=== PATIENT | female | born 1960 ===

== ENCOUNTER 2017-03-16 16:41 | Emergency (ER) | payer OTHER ==
[2017-03-16] MEDS ORDERED: Sodium Chloride 0.9% 1,000 ML IV ONE (17:06)
[2017-03-16 17:43] LABS: BASO % 0.4 % (0.0-2.0); EOS # 0.2 K/uL (0.0-0.7); EOS % 2.7 % (0.0-4.0); HEMATOCRIT 33.4 % (34.0-47.0); LYMPH # 2.1 K/uL (1.0-4.3); LYMPH % 35.1 % (20.0-40.0); MEAN CORPUSCULAR HEMOGLOBIN 26.7 pg (27.0-31.0); MEAN CORPUSCULAR HGB CONC 32.9 g/dL (33.0-37.0); MEAN PLATELET VOLUME 8.6 fL (7.2-11.7); MONO # 0.4 K/uL (0.0-0.8); MONO % 6.2 % (0.0-10.0); NRBC % 0.1 % (0.0-2.0); RED CELL DISTRIBUTION WIDTH 14.2 % (11.5-14.5); WHITE BLOOD COUNT 5.9 K/uL (4.8-10.8)
--- NOTE | 2017-03-16 17:45 | RAD ---
HISTORY: kub for stent eval (urology) COMPARISON: No prior. FINDINGS: BOWEL: Moderate amount of stool seen throughout the colon consistent with fecal retention/ constipation. No evidence of acute mechanical bowel obstruction BONES: No acute fractures. OTHER FINDINGS: In situ right-sided ureteral stent. Metallic clips right upper quadrant of the abdomen consistent with prior cholecystectomy. IMPRESSION: In situ right ureteral stent. Post cholecystectomy changes. Findings consistent with constipation.
[2017-03-16 18:10] LABS: CHLORIDE 105 mmol/L (98-107); POTASSIUM 3.8 mmol/L (3.6-5.2); SODIUM 141 mmol/L (132-148)
[2017-03-16] MEDS ORDERED: Sodium Chloride 0.9% 1,000 ML ONE (18:10)
[2017-03-16 18:12] LABS: BILIRUBIN,TOTAL 0.3 mg/dL (0.2-1.3); GFR AFRICAN-AMERICAN > 60
[2017-03-16 18:13] LABS: ALB/GLOB RATIO 1.3 (1.0-2.1); ALKALINE PHOSPHATASE 61 U/L (38-126); ALT/SGPT 29 U/L (9-52); AST/SGOT 22 U/L (14-36); BLOOD UREA NITROGEN 12 mg/dL (7-17); CALCIUM 8.9 mg/dl (8.6-10.4); CARBON DIOXIDE 21 mmol/L (22-30); GLUCOSE,RANDOM 122 mg/dL (65-105); TOTAL PROTEIN 6.8 g/dL (6.3-8.3)
--- NOTE | 2017-03-16 18:34 | C.PDOC ---
History Of Present Illness 57 yr old female referred to ER by Dr. Butler for evaluation of abdominal pain, right flank pain, hematuria and fever. Patient reports teperture of 101 at home. Patient is s/p stent placement 03/12/17 and lithotripsy on 03/13/17. States the symptoms worsened yesterday. Patient denies chest pain, SOB, nausea, vomiting, dysuria, weakness or numbness. Time Seen by Provider: 03/16/17 17:06 Chief Complaint (Nursing): Female Genitourinary History Per: Patient History/Exam Limitations: no limitations Onset/Duration Of Symptoms: Days Current Symptoms Are (Timing): Still Present Past Medical History Reviewed: Historical Data, Nursing Documentation, Vital Signs Vital Signs: Last Vital Signs Temp 97.6 F 03/16/17 19:42 Pulse 67 03/16/17 19:42 Resp 18 03/16/17 19:42 BP 146/88 03/16/17 19:42 Pulse Ox 99 03/16/17 19:54 - Medical History PMH: Anemia, Kidney Stones, Chronic Kidney Disease Surgical History: Appendectomy, Cholecystectomy Family History: States: No Known Family Hx - Social History Hx Alcohol Use: No Hx Substance Use: No Review Of Systems Except As Marked, All Systems Reviewed And Found Negative. Constitutional: Positive for: Fever (101 at home) Cardiovascular: Negative for: Chest Pain Respiratory: Negative for: Shortness of Breath Gastrointestinal: Positive for: Abdominal Pain. Negative for: Nausea, Vomiting Genitourinary: Positive for: Hematuria. Negative for: Dysuria Musculoskeletal: Positive for: Back Pain (Right flank pain) Neurological: Negative for: Weakness, Numbness Physical Exam - Physical Exam Appears: Non-toxic, In Acute Distress (Mild pain) Skin: Warm, Dry, No Rash Head: Atraumatic, Normacephalic Oral Mucosa: Moist Chest: Symmetrical, No Tenderness Cardiovascular: Rhythm Regular, No Murmur Respiratory: Normal Breath Sounds, No Rales, No Rhonchi, No Wheezing Gastrointestinal/Abdominal: Soft, Tenderness (Right periumbilical tenderness), No Guarding, No Rebound Back: CVA Tenderness (Right ) Extremity: Normal ROM, No Swelling Neurological/Psych: Oriented x3, Normal Speech ED Course And Treatment - Laboratory Results Result Diagrams: 03/16/17 17:37 03/16/17 17:37 O2 Sat by Pulse Oximetry: 99 (RA) Pulse Ox Interpretation: Normal - Other Rad X-Ray - Abdomen X-Ray: Viewed By Me, Read By Radiologist Interpretation: HISTORY: kub for stent eval (urology). COMPARISON: No prior. FINDINGS: BOWEL: Moderate amount of stool seen throughout the colon consistent with fecal retention/ constipation. No evidence of acute mechanical bowel obstruction. BONES: No acute fractures. OTHER FINDINGS: In situ right- sided ureteral stent. Metallic clips right upper quadrant of the abdomen consistent with prior cholecystectomy. IMPRESSION: In situ right ureteral stent. Post cholecystectomy changes. Findings consistent with constipation. Progress Note: PLAN: X-Ray - Abdomen, CBC, CMP, Urinalysis, Toradol IVP & Sodium Chloride IV. Disposition Counseled Patient/Family Regarding: Studies Performed, Diagnosis, Need For Followup, Rx Given - Disposition Referrals: Raul Nur MD [Staff Provider] - Disposition: HOME/ ROUTINE Disposition Time: 19:50 Condition: STABLE Additional Instructions: SEGUIMIENTO CON UROLOGA DENTRO DE 1 SEMANA USE MEDICAMENTOS SEGN LO DIRIGIDO BEBER ABUNDANTE AGUA DEVUELVA A LA DEBRA DE EMERGENCIA SI LOS SNTOMAS EMPEORARAN Prescriptions: Ciprofloxacin [Cipro] 1 tab PO BID #6 tab Hydrocodone/Acetaminophen [Hydrocodon-Acetaminophen 5-325] 1 each PO Q6 PRN #15 tablet PRN Reason: Pain, Moderate (4-7) Instructions: Urinary Tract Infection in Women (ED), Renal Colic (ED) Forms: [facility] (Chinese), Work Excuse Print Language: ENGLISH - POA Present On Arrival: None - Clinical Impression Clinical Impression: Pain due to ureteral stent, UTI (urinary tract infection) - Scribe Statement The provider has reviewed the documentation as recorded by the Sophie Ochoa Provider Attestation: All medical record entries made by the Scribe were at my direction and personally dictated by me. I have reviewed the chart and agree that the record accurately reflects my personal performance of the history, physical exam, medical decision making, and the department course for this patient. I have also personally directed, reviewed, and agree with the discharge instructions and disposition.
[2017-03-16 18:48] LABS: RBC URINE 3187 /hpf (0-3); URINE BACTERIA MOD (<OCC); URINE BILIRUBIN NEGATIVE (NEGATIVE); URINE BLOOD 3+ (NEGATIVE); URINE CALCIUM OXALATE CRYSTALS MOD /hpf (<OCC); URINE COLOR Yellow (YELLOW); URINE GLUCOSE (UA) NORMAL (Normal); URINE KETONE NEGATIVE (NEGATIVE); URINE LEUKOCYTE ESTERASE 3+ Leu/uL (Negative); URINE PROTEIN 2+ mg/dL (NEGATIVE); URINE UROBILINOGEN NORMAL mg/dL (0.2-1.0); WBC URINE 109 /hpf (0-5)
[2017-03-16] MEDS ORDERED: Hydrocodone/Acetaminophen 5 mg /300 mg Tab PO STA (19:34)
[2017-03-16] MEDS ORDERED: Hydrocodone/Acetaminophen 5 mg /300 mg Tab PO ONE (19:40)
[2017-03-16 20:16] VITALS: BP 144/81; PULSE 72; RESP 17; TEMP 97.8; O2SAT 96
== END 2017-03-16 20:14 | disposition home or self-care (01) ==
LOC: C.ER 16:41
DX: T83.84XA Pain due to genitourinary prosthetic devices, implants and grafts, initial encounter (principal); Y83.8 Other surgical procedures as the cause of abnormal reaction of the patient, or of later complication, without mention of misadventure at the time of the procedure; N39.0 Urinary tract infection, site not specified
CPT/HCPCS: 74000; 80053; 81001; 85025; 87040; 87086; 96374; 99285; J1885; J7040